=== PATIENT | male | born 1950 | race American Indian/Alaskan Native ===

== ENCOUNTER 2016-08-22 09:27 | Outpatient (CLI) | payer OTHER ==
--- NOTE | 2016-08-24 07:48 | Vascular Lab Report ---
CAROTID DUPLEX STUDY: RIGHT PSVEDV CCA PROX:[id number] CCA DIST:[id number] ICA PROX:6814 ICA MID:7330 ICA DIST:[id number] ECA: 647 VERT: 47 14 LEFT PSVEDV CCA PROX:[id number] CCA DIST:8022 ICA PROX:6017 ICA MID:6630 ICA DIST:6726 ECA: 8310 VERT: 57 20 REASON FOR EXAM: Carotid artery stenosis/syncope. COMMENTS ON THE RIGHT: Doppler frequency analysis is consistent with 16 to 49 percent diameter reduction of the internal carotid artery. Minimal amount of plaque is seen. The common carotid artery is patent. The external carotid artery is patent. The vertebral artery has antegrade flow. COMMENTS ON THE LEFT: Doppler frequency analysis is consistent with 16 to 49 percent diameter reduction of the internal carotid artery. Minimal amount of plaque is seen. The common carotid artery is patent. The external carotid artery is patent. The vertebral artery has antegrade flow. IMPRESSION: Less than 50% diameter reduction in the internal carotid arteries bilaterally. Consider repeat carotid artery duplex in 12 months.
== END 2016-08-22 09:28 | disposition home or self-care (01) ==
LOC: VAS 09:27
PROVIDERS: ATTEND Internal Medicine
DX: G47.00 Insomnia, unspecified (principal); E55.9 Vitamin D deficiency, unspecified; R42 Dizziness and giddiness; R55 Syncope and collapse; R25.2 Cramp and spasm; R07.89 Other chest pain
CPT/HCPCS: 93880